=== PATIENT | female | born 1945 | race Caucasian/White ===

== ENCOUNTER 2021-06-08 09:01 | Emergency (ER) | payer OTHER ==
[~2021-06-08] VITALS: Ht 162.6 cm; Wt 50.8 kg
[2021-06-08 09:51] LABS: HEMOGLOBIN 12.8 gm/dl (12.3-15.3); RED BLOOD COUNT 4.08 M/UL (4.00-5.10); WHITE BLOOD COUNT 3.4 K/UL (4.5-11.0)
[2021-06-08 10:06] LABS: BUN/CREATININE RATIO 10 (0-10)
== END 2021-06-08 13:19 | disposition home or self-care (01) ==
LOC: ER1 09:01
PROVIDERS: Physician Assistant
DX: Z23 Encounter for immunization (principal); U07.1 COVID-19; J44.9 Chronic obstructive pulmonary disease, unspecified; F17.200 Nicotine dependence, unspecified, uncomplicated
CPT/HCPCS: 71045; 80053; 82728; 85025; 86140; 93005; 99284; M0243